=== PATIENT | male | born 1960 | race Caucasian/White ===

== ENCOUNTER 2016-10-25 23:55 | Emergency (ER) | payer OTHER ==
[2016-10-26 00:04] VITALS: RESP 18
[2016-10-26] MEDS ORDERED: DIPH,PERTUS(ACELL)TETVAC-LF 0.5 ML VIAL IM ONE (00:45)
--- NOTE | 2016-10-26 00:49 | ED ---
Wound/Laceration HPI - General Chief Complaint: Wound/Laceration Stated Complaint: hand injury Time Seen by Provider: 10/26/16 00:36 Source: patient, EMS, RN notes reviewed Mode of arrival: EMS Limitations: no limitations - History of Present Illness Initial Comments: 55-year-old male presents to the emergency department with a chief complaint of right arm laceration. Patient states he put his arm through a glass window and obvious lacerations to the right arm. Patient states that he is not to assess. Patient denies any pain or weakness. Patient denies any other injury. Patient states he was concerned due to his symptoms as well as to the depth of the cuts. Patient denies any recent fever, chills, shortness of breath, chest pain, back pain, abdominal pain, nausea vomiting, numbness or tingling, dysuria or hematuria, constipation or diarrhea, headaches or visual changes, or any other current symptoms. - Related Data Allergies Allergy/AdvReac Type Severity Reaction Status Date / Time No Known Allergies Allergy Verified 10/25/16 23:58 Review of Systems ROS Statement: Those systems with pertinent positive or pertinent negative responses have been documented in the HPI. ROS Other: All systems not noted in ROS Statement are negative. Past Medical History Past Medical History: No Reported History History of Any Multi-Drug Resistant Organisms: None Reported Additional Past Surgical History / Comment(s): umbilical hernia repair Past Psychological History: No Psychological Hx Reported Smoking Status: Current every day smoker Past Alcohol Use History: Occasional Past Drug Use History: None Reported General Exam - General Exam Comments Initial Comments: General: The patient is awake and alert, in no distress, and does not appear acutely ill. Neck: The neck is supple, there is no tenderness. Cardiovascular: There is a regular rate and rhythm. No murmur, rub or gallop is appreciated. Respiratory: Lungs are clear to auscultation, respirations are non-labored, breath sounds are equal. No wheezes, stridor, rales, or rhonchi. Musculoskeletal: Sensation intact with 2+ pulses throughout the right impression. Full range of motion of right wrist and right elbow. Patient has a small superficial laceration to palm of the right hand. Patient has a linear abrasion to the right wrist. Patient has a 8 cm laceration to the right forearm. 5 out of 5 muscle strength testing throughout. 2+ pulses. Initial evaluation does show concern for deep tissue injury Neurological: CN II-XII intact, There are no obvious motor or sensory deficits. Coordination appears grossly intact. Speech is normal. Skin: Skin is warm and dry and no rashes or lesions are noted. Psychiatric: Normal mood and affect. Limitations: no limitations Course Vital Signs 10/25/16 23:59 Temperature 100.3 F H Pulse Rate 119 H Respiratory 18 Rate Blood Pressure 131/68 O2 Sat by Pulse 93 L Oximetry Procedures - Procedures Initial comment: The skin was anesthetized with 1% lidocaine. The laceration was then cleansed with Betadine and irrigated with normal saline. The wound was inspected, and there was injury to the muscle layer no tendon injury noted. No foreign body was noted in the wound. A total of 3 subcutaneous sutures were placed using 4-0 Vicryl followed by 13 skin sutures utilizing 5-0 nylon to a 8 cm laceration of the right forearm Medical Decision Making - Medical Decision Making 55-year-old male presents to the emergency Department chief complaint of right forearm laceration. At this time patient underwent laceration repair x-ray was reviewed. At this time we did discuss that there is concern for muscle injury. We did close internally and externally. We did discuss that he needs to follow-up with orthopedic is given their information. We did discuss this could lead to loss of function if he does not follow-up in his eye examined appropriately. The patient stated that he understood he states that he will do this. Muscle strength testing is normal at this time. Patient will be discharged home. Return parameters and care was discussed. - Radiology Data Radiology results: report reviewed, image reviewed Disposition Clinical Impression: Abrasion of right hand, Forearm laceration with complication Disposition: HOME SELF-CARE Condition: Stable Instructions: Abrasion (ED), Laceration (ED), Care For Your Stitches (ED) Additional Instructions: Please use medication as discussed. Please follow up with family doctor if symptoms have not improved over the next two days. Please return to the emergency room if your symptoms increase or worsen or for any other concerns. Please return to the emergency room in 8-10 days to have sutures removed. Please leave wound covered for the first 24-48 hours and then leave open to air after that time. Please use clean soap and water to clean the suture area to prevent scabbing over the top of your sutures. Please watch for any signs of infection which may include but not limited to increased pain, swelling, redness , fever or chills. Please return to the emergency room if any signs of infection do occur. Please return to the emergency room for any other concerns or complications. Follow-up with or so as discussed. Referrals: Toney Bush MD [STAFF PHYSICIAN] - 1-2 days Time of Disposition: 01:41
--- NOTE | 2016-10-26 01:20 | XR ---
EXAM: XR Right Forearm, 2 Views XR Right Elbow, 3 Views CLINICAL HISTORY: Reason: Pain Proximal forearm laceration after arm went through window glass, no previous TECHNIQUE: Frontal and lateral views of the right forearm. Frontal, lateral, and oblique views of the right hand. COMPARISON: No relevant prior studies available. FINDINGS: Bones/joints: No acute fracture or dislocation. Age-indeterminate 2 mm density adjacent to the proximal surface of the lunate. Mild degenerative changes of the hand. Soft tissues: Roughly 4.2 cm soft tissue defect in the proximal volar soft tissues of the forearm. No radiopaque foreign body. IMPRESSION: 1. No acute fracture or dislocation. 2. Roughly 4.2 cm soft tissue defect in the proximal volar soft tissues of the forearm. 3. No radiopaque foreign body. 4. Age-indeterminate 2 mm density adjacent to the proximal surface of the lunate.
[2016-10-26] MEDS ORDERED: CEPHALEXIN 500MG STARTER PACK 4 CAP BTL PO STA (01:43)
[2016-10-26 02:26] VITALS: BP 145/89; PULSE 88; TEMP 99
== END 2016-10-26 02:24 | disposition home or self-care (01) ==
LOC: EC 23:55
DX: S51.811A Laceration without foreign body of right forearm, initial encounter (principal); F17.200 Nicotine dependence, unspecified, uncomplicated; Z23 Encounter for immunization; W25.XXXA Contact with sharp glass, initial encounter
CPT/HCPCS: 12034; 90471; 90715; 99284

== ENCOUNTER 2022-08-14 17:54 | Inpatient (IN) | payer OTHER ==
--- NOTE | 2022-08-14 18:59 | ED ---
Chest Pain HPI - General Chief Complaint: Chest Pain Stated Complaint: Chest Pain last night Time Seen by Provider: 08/14/22 18:58 Source: patient, RN notes reviewed, old records reviewed Mode of arrival: ambulatory Limitations: no limitations - History of Present Illness Initial Comments: This is a 61-year-old male presents today for evaluation patient has no significant medical history positive history of smoking attempting to quit. Patient has no travel history or sick contacts coming in for evaluation regarding chest pain significant headache. History. Patient was not feeling well throughout the day yesterday did take at home coronavirus test which was negative. Feels well today with family was concerned about his symptoms and wanted and presents to the emergency department for evaluation. There concern any despite his life he has not seen a family doctor Antivert patient come to the ER for evaluation of this chest pain MD Complaint: chest pain, other (No current chest pain) -: hour(s) Onset: during rest, during exertion Pain Location: substernal, left chest Pain Radiation: none Severity: moderate Severity scale (1-10): 7 Quality: tightness, aching, heaviness Consistency: constant, now resolved Improves With: nothing Worsens With: nothing Anginal Symptoms: diaphoresis Other Symptoms: palpitations Treatments Prior to Arrival: none - Related Data Home Medications Medication Instructions Recorded Confirmed No Known Home Medications 08/14/22 08/14/22 Allergies Allergy/AdvReac Type Severity Reaction Status Date / Time No Known Allergies Allergy Verified 08/14/22 19:33 Review of Systems ROS Statement: Those systems with pertinent positive or pertinent negative responses have been documented in the HPI. ROS Other: All systems not noted in ROS Statement are negative. EKG Findings - EKG Comments: EKG Findings:: EKG is sinus 84 MI 190 QRS 97 QTC 433 Past Medical History Past Medical History: No Reported History History of Any Multi-Drug Resistant Organisms: None Reported Past Surgical History: Hernia Repair Additional Past Surgical History / Comment(s): umbilical hernia repair Past Psychological History: No Psychological Hx Reported Smoking Status: Current every day smoker Past Alcohol Use History: Occasional Past Drug Use History: None Reported General Exam Limitations: no limitations General appearance: anxious Head exam: Present: atraumatic, normocephalic, normal inspection Eye exam: Present: normal appearance, PERRL, EOMI. Absent: scleral icterus, conjunctival injection, periorbital swelling ENT exam: Present: normal exam, mucous membranes moist Neck exam: Present: normal inspection. Absent: tenderness, meningismus, lymphadenopathy Respiratory exam: Present: normal lung sounds bilaterally. Absent: respiratory distress, wheezes, rales, rhonchi, stridor Cardiovascular Exam: Present: regular rate, normal rhythm, normal heart sounds. Absent: systolic murmur, diastolic murmur, rubs, gallop, clicks GI/Abdominal exam: Present: soft, normal bowel sounds. Absent: distended, tenderness, guarding, rebound, rigid Extremities exam: Present: normal inspection, full ROM, normal capillary refill. Absent: tenderness, pedal edema, joint swelling, calf tenderness Back exam: Present: normal inspection Neurological exam: Present: alert, oriented X3, CN II-XII intact Psychiatric exam: Present: normal affect, normal mood Skin exam: Present: warm, dry, intact, normal color. Absent: rash Course Vital Signs 08/14/22 08/14/22 08/14/22 18:06 19:17 20:14 Temperature 98.6 F Pulse Rate 94 85 90 Respiratory 16 16 18 Rate Blood Pressure 133/86 144/97 135/89 O2 Sat by Pulse 93 L 96 Oximetry 08/14/22 21:25 Temperature Pulse Rate 76 Respiratory 18 Rate Blood Pressure 135/83 O2 Sat by Pulse 96 Oximetry - Reevaluation(s) Reevaluation #1: 08/14/22 22:21 Medical records reviewed Reevaluation #2: 08/14/22 22:21 patient informed of results and questions have been answered Reevaluation #3: 08/14/22 22:21 Patient continues to be without chest pain here in the ER Reevaluation #4: 08/14/22 22:22 Was pt. sent in by a medical professional or institution? @ -no Did you speak to anyone other than the patient for history? @ -no Did you review nursing and triage notes? @ -agree Were old charts reviewed? @ -no Differential Diagnosis? @ -prior EKG interpreted by me (3pts min.)? @ -yes X-rays interpreted by me (1pt min.)? @ -yes CT interpreted by me (1pt min.)? @ -no U/S interpreted by me (1pt. min.)? @ -no What testing was considered but not performed? (CT, X-rays, U/S, labs)? Why? @ -no What meds were considered but not given? Why? @ -no Did you discuss the management of the patient with other professionals? @ -no Did you reconcile home meds? @ -yes Was smoking cessation discussed for >3mins.? @ -yes Was critical care preformed (if so, how long)? @ -yes Were there social determinants of health that impacted care today? How? (Homelessness, low income, unemployed, alcoholism, drug addiction, transportation, low edu. Level, literacy, decrease access to med. care, intermediate, rehab)? @ -no Was there de-escalation of care discussed even if they declined? (Discuss DNR or withdrawal of care, Hospice)? @ -no What co-morbidities impacted this encounter? (DM, HTN, Smoking, COPD, CAD, Cancer, CVA, Hep., AIDS, mental health diagnosis, sleep apnea, morbid obesity)? @ -no Was patient admitted / discharged? @ -admit Undiagnosed new problem with uncertain prognosis? @ -no Drug Therapy requiring intensive monitoring for toxicity (Heparin, Nitro, Insulin, Cardizem)? @ -no Were any procedures done? @ -no Diagnosis/symptom? @ -NSTEMI,ACS Acute, or Chronic, or Acute on Chronic? @ -acute Uncomplicated (without systemic symptoms) or Complicated (systemic symptoms)? @ -no Side effects of treatment? @ -no Exacerbation, Progression, or Severe Exacerbation] @ - Poses a threat to life or bodily function? @ -yes 08/14/22 22:22 Reevaluation #5: 08/14/22 22:22 Differential Chest Pain: Stable Angina, Unstable Angina, STEMI, NSTEMI Aortic Dissection, Pneumothorax, Musculoskeletal, Esophageal Spasm GERD, Cholecystitis, Pancreatitis, Zoster, this is not meant to be an all-inclusive list. - Consultations Consultation #1: Spoke with Dr. Roman, cardiology where patient's elevated troponin Consultation #2: spoke with rakesh who agrees to admit this patient Chest Pain MDM - MDM 61 male to the emergency room for chest pain that he experienced yesterday. Patient has no significant chest pain here in the emergency department. Patient also had some weakness and sweating yesterday. He had a fever. Covert test was negative yesterday has have acute non-ST elevated [place] here in the ER stage IV 5 EKG negative 2 patient be admitted on heparin for cardiology to see and evaluate Critical Care Time Critical Care Time: Yes Total Critical Care Time: 31 Disposition Clinical Impression: Acute non-ST elevation myocardial infarction (NSTEMI), Chest pain, ACS (acute coronary syndrome) Disposition: ADMITTED IP TO THIS HOSP Condition: Serious Is patient prescribed a controlled substance at d/c from ED?: No Referrals: None,Stated [Primary Care Provider] - 1-2 days Time of Disposition: 20:10
[2022-08-14 19:32] LABS: Basophils # (A) 0.1 k/uL (0-0.2); Basophils % (A) 0 %; Eosinophils # (A) 0.1 k/uL (0-0.7); Eosinophils % (A) 1 %; HGB 16.2 gm/dL (13.0-17.5); Lymphocytes # (A) 2.3 k/uL (1.0-4.8); Lymphocytes % (A) 19 %; MCH 30.3 pg (25.0-35.0); MCHC 33.8 g/dL (31.0-37.0); MCV 89.7 fL (80.0-100.0); Mean Platelet Volume 8.2; Monocytes # (A) 0.8 k/uL (0-1.0); Monocytes % (A) 6 %; Neutrophils % (A) 72 %; Platelet Count 199 k/uL (150-450); RBC 5.35 m/uL (4.30-5.90); RDW 12.9 % (11.5-15.5); WBC 12.4 k/uL (3.8-10.6)
[2022-08-14 19:44] LABS: ALT 36 U/L (4-49); AST 87 U/L (17-59); African American GFR (CKD) >90 (>60 ml/min/1.73 sqM); Albumin 4.7 g/dL (3.5-5.0); Alkaline Phosphatase 92 U/L (38-126); Anion Gap 11 mmol/L; Blood Urea Nitrogen 13 mg/dL (9-20); Calcium 9.9 mg/dL (8.4-10.2); Carbon Dioxide 23 mmol/L (22-30); Chloride 105 mmol/L (98-107); Glucose 131 mg/dL (74-99); Lipase 81 U/L (23-300); Magnesium 2.1 mg/dL (1.6-2.3); Non-African American GFR(CKD) >90 (>60 ml/min/1.73 sqM); Partial Thromboplastin Time 24.5 sec (22.0-30.0); Potassium 4.3 mmol/L (3.5-5.1); Prothrombin Time 10.4 sec (9.0-12.0); Sodium 139 mmol/L (137-145); Total Bilirubin 0.7 mg/dL (0.2-1.3); Total Protein 8.2 g/dL (6.3-8.2)
--- NOTE | 2022-08-14 19:46 | XR ---
EXAMINATION TYPE: XR chest 1V portable DATE OF EXAM: 08/14/2022 7:22 PM COMPARISON: None TECHNIQUE: XR chest 1V portable Frontal view of the chest. CLINICAL INDICATION:Male, 61 years old with history of chest pain; FINDINGS: Lungs/Pleura: There is no evidence of pleural effusion, focal consolidation, or pneumothorax. Pulmonary vascularity: Unremarkable. Heart/mediastinum: Cardiomediastinal silhouette is unremarkable. Musculoskeletal: No acute osseous pathology. IMPRESSION: No acute cardiopulmonary disease/process.
--- NOTE | 2022-08-14 20:46 | CT ---
EXAMINATION TYPE: CT angio chest CT DLP: 420.9 mGycm, Automated exposure control for dose reduction was used. DATE OF EXAM: 08/14/2022 8:22 PM COMPARISON: Chest radiograph from same day. CLINICAL INDICATION:Male, 61 years old with history of pain; pain, sob. TECHNIQUE/CONTRAST: CTA scan of the thorax is performed with IV Contrast, patient injected with 100ml of Isovue 370, pulm onary embolism protocol. MIP images are created and reviewed these are created on a separate worksta tion.. FINDINGS: Pulmonary Artery: There is no evidence for a filling defect within the pulmonary vasculature to sugge st acute pulmonary embolism. The pulmonary artery is of normal size. Lungs/Pleura: No evidence of focal consolidation, pleural effusion or pneumothorax. Left upper lobe 3 mm pulmonary nodule. Series 606 image 65. Airway: Large airways are patent. Heart: Heart is within normal limits for size. Vasculature: No evidence of aortic aneurysm. Mediastinum: No gross evidence of adenopathy. Musculoskeletal: No acute osseous abnormalities Soft Tissues: Unremarkable. Lower neck: No significant findings. Upper Abdomen: No significant findings. IMPRESSION: 1. No evidence of pulmonary embolism. 2. 3 mm left upper lobe pulmonary nodule consider follow-up in one year to ensure stability.
[2022-08-14] MEDS ORDERED: HEPARIN SODIUM 1,000 UN/ML (10ML VL) IV ONE (22:09)
[2022-08-14] MEDS ORDERED: MORPHINE SULFATE 4 MG/ML SYRINGE IV PRN (22:09)
[2022-08-14] MEDS ORDERED: NITROGLYCERIN SL TABS 0.4 MG TAB SUBLINGUAL PRN (22:09)
[2022-08-14] MEDS ORDERED: ASPIRIN 81 MG PO STA (22:09)
[2022-08-14] MEDS: HEPARIN SOD,PORK IN 0.45% NACL 25,000 UNIT in 0.45% NACL 1 250ML.BAG IV SCH (22:58)
[2022-08-14] MEDS: SODIUM CHLORIDE 0.9% 1,000 ML IV SCH (23:00)
--- NOTE | 2022-08-15 04:28 | P.HPIM ---
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 however due to recurrent episodes of pain and breathing difficulties , denies nausea and vomiting, denies any fever chills, denies any recent respiratory illnes. he decided to come in to test for covid . he is feeling better now, laying in bed comfortably admits to smoking , denies drugs and alcohol Review of Systems Pertinent positives as noted in HPI. All other systems were reviewed and are negative Past Medical History Past Medical History: No Reported History History of Any Multi-Drug Resistant Organisms: None Reported Past Surgical History: Hernia Repair Additional Past Surgical History / Comment(s): umbilical hernia repair Past Psychological History: No Psychological Hx Reported Smoking Status: Current every day smoker Past Alcohol Use History: Occasional Past Drug Use History: None Reported Medications and Allergies Home Medications Medication Instructions Recorded Confirmed Type No Known Home Medications 08/14/22 08/14/22 History Allergies Allergy/AdvReac Type Severity Reaction Status Date / Time No Known Allergies Allergy Verified 08/14/22 19:33 Physical Exam Vitals: Vital Signs Temp Pulse Resp BP Pulse Ox 08/14/22 23:00 82 16 140/93 93 L 08/14/22 21:25 76 18 135/83 96 08/14/22 20:14 90 18 135/89 08/14/22 19:17 85 16 144/97 96 08/14/22 18:06 98.6 F 94 16 133/86 93 L Intake and Output 08/14/22 08/14/22 08/15/22 14:59 22:59 06:59 Other: Weight 90.718 kg Constitutional: No acute distress, conversant, pleasant Eyes: Anicteric sclerae, moist conjunctiva, Pupils equal round reactive to light ENMT: NC/AT Oropharynx clear, no erythema, or exudates Neck: Supple, no masses, or JVD No carotid bruits No thyromegaly Lungs: Clear to auscultation Clear to percussion Normal respiratory effort, no accessory muscle use Cardiovascular: Heart regular in rate and rhythm, No murmurs, gallops, or rubs No peripheral edema Abdominal: Soft Nontender, no guarding, rebound or rigidity Abdomen moving with respiration Normoactive bowel sounds No hepatomegaly, No splenomegaly No palpable mass No abdominal wall hernia noted Skin: Normal temperature, tone, texture, turgor No induration No subcutaneous nodules No rash, lesions No ulcers Extremities: No digital cyanosis No clubbing Pedal pulses intact and symmetrical Radial pulses intact and symmetrical No calf tenderness Psychiatric: Alert and oriented to person, place and time Appropriate affect fair judgement Neuro Muscles Strength 5/5 in all 4 extremities Sensation to light touch grossly present throughout Cranial nerves II-XII grossly intact Lymphatics: no palpable cervical or supraclavicular lymph nodes Results CBC & Chem 7: 08/14/22 19:11 08/14/22 19:11 Labs: Abnormal Lab Results - Last 24 Hours (Table) 08/14/22 08/14/22 08/14/22 Range/Units 19:11 19:11 19:11 WBC 12.4 H (3.8-10.6) k/uL Neutrophils # 9.0 H (1.3-7.7) k/uL D-Dimer 0.62 H (<0.60) mg/L FEU Glucose 131 H (74-99) mg/dL AST 87 H (17-59) U/L CK-MB (CK-2) (0.0-2.4) ng/mL Troponin I (0.000-0.034) ng/mL 08/14/22 08/14/22 Range/Units 19:11 20:14 WBC (3.8-10.6) k/uL Neutrophils # (1.3-7.7) k/uL D-Dimer (<0.60) mg/L FEU Glucose (74-99) mg/dL AST (17-59) U/L CK-MB (CK-2) 39.9 H (0.0-2.4) ng/mL Troponin I 5.130 H* (0.000-0.034) ng/mL Assessment and Plan Assessment: 61 year old male with no significant past medical history , presented due to chest pain and not feeling well, I discussed the case with ED doc, and I accepted the admission for NSTEMI to rule out NSTEMI NSTEMI color television console monitor monitor vital signs pain control with nitro PRN morphine PRN if needed for pain ASA, statin metoprolol cardiology consult check echocardiogram elevated trops in the 5-6 range EKG no acute ST changes incidental finding of left upper lung small nodule of 3 cm , radiology recommending follow up in 1 year . blood work reviewed, Hgb 16.2, WBC 12.4 slightly elevaetd D dimer CTA of lung, no acute PE full code DVT PPX on hepairn gtt per protocol for ACCS
[2022-08-15 05:43] LABS: Mean Platelet Volume 8.1; Platelet Count 198 k/uL (150-450)
[2022-08-15] MEDS ORDERED: HEPARIN SODIUM 1,000 UN/ML (10ML VL) IV PRN (06:36)
[2022-08-15] MEDS: METOPROLOL TARTRATE 25 MG TAB PO SCH ×2 (08:37→21:20)
[2022-08-15] MEDS: ATORVASTATIN 80 MG TAB PO SCH (08:37)
[2022-08-15] MEDS ORDERED: NITROGLYCERIN SL TABS 0.4 MG TAB SUBLINGUAL PRN (08:54)
[2022-08-15] MEDS ORDERED: ALPRAZolam 0.5 MG TAB PO PRN (08:54)
[2022-08-15] MEDS ORDERED: ALPRAZolam 0.25 MG TAB PO PRN (08:54)
[2022-08-15] MEDS ORDERED: ATORVASTATIN 80 MG TAB PO STA (08:54)
[2022-08-15] MEDS ORDERED: ASPIRIN 325 MG TAB PO STA (08:54)
[2022-08-15] MEDS ORDERED: ASPIRIN 81 MG PO SCH (09:00)
[2022-08-15] MEDS ORDERED: ASPIRIN 325 MG TAB PO SCH (09:00)
[2022-08-15] MEDS ORDERED: VERAPAMIL 2.5 MG/ML 2 ML AMP ONE (11:55)
[2022-08-15] MEDS ORDERED: IV FLUID CONTINUATION 850 ML IV ONE (12:02)
[2022-08-15] MEDS ORDERED: fentaNYL (PF) 50 MCG/ML 2 ML AMP ONE (12:04)
[2022-08-15] MEDS ORDERED: HEPARIN SODIUM 1,000 UN/ML (10ML VL) ONE (12:04)
[2022-08-15] MEDS ORDERED: fentaNYL (PF) 50 MCG/1 ML VIAL IVP ONE (12:07)
[2022-08-15] MEDS ORDERED: MIDAZOLAM 2 MG/2 ML VIAL IVP ONE (12:07)
[2022-08-15] MEDS ORDERED: LIDOCAINE 1% INJ 10MG/ML (5 ML VIAL-PF) SQ ONE (12:09)
[2022-08-15] MEDS ORDERED: VERAPAMIL SYRINGE (5 MG/10 ML) INTRAARTER ONE (12:13)
[2022-08-15] MEDS ORDERED: HEPARIN SODIUM 1,000 UN/ML (10ML VL) IV ONE (12:15)
[2022-08-15] MEDS ORDERED: IOPAMIDOL-370 200ML BTL INJ ONE (12:27)
--- NOTE | 2022-08-15 12:34 | CA ---
Transthoracic Echo Report Name: Minh Wakefield Age: 61 Gender: M : 1960 Exam Date: 08/15/2022 10:23 Exam Location: [facility] Ht (in): 63 Wt (lb): 200 Ordering Physician: Peter Motta DO Attending/Referring Phys: [id number], Kalia Rn Access Nany Cramer, MIGUEL ÁNGEL Procedure CPT: Indications: elevTrop Cardiac Hx: Technical Quality: Good Contrast 1: Total Dose (mL): Contrast 2: Total Dose (mL): MEASUREMENTS (Male / Female) Normal Values 2D ECHO LV Diastolic Diameter PLAX 4.4 cm 4.2 - 5.9 / 3.9 - 5.3 cm LV Systolic Diameter PLAX 3.2 cm IVS Diastolic Thickness 1.2 cm 0.6 - 1.0 / 0.6 - 0.9 cm LVPW Diastolic Thickness 1.2 cm 0.6 - 1.0 / 0.6 - 0.9 cm LV Relative Wall Thickness 0.5 RV Internal Dim ED PLAX 3.2 cm LA Systolic Diameter LX 3.7 cm 3.0 - 4.0 / 2.7 - 3.8 cm LV Diastolic Volume MOD 4C 102.2 cm??? LV Systolic Volume MOD 4C 59.8 cm??? LV Ejection Fraction MOD 4C 41.5 % LV Diastolic Length 4C 8.4 cm LV Systolic Length 4C 6.8 cm LV Diastolic Volume MOD 2C 95.1 cm??? LV Systolic Volume MOD 2C 59.2 cm??? LV Ejection Fraction MOD 2C 37.7 % LV Diastolic Length 2C 8.1 cm LV Systolic Length 2C 7.0 cm LA Volume 50.9 cm??? 18 - 58 / 22 - 52 cm??? M-MODE Aortic Root Diameter MM 3.5 cm MV E Point Septal Separation 1.7 cm AV Cusp Separation MM 2.2 cm DOPPLER AV Peak Velocity 126.7 cm/s AV Peak Gradient 6.4 mmHg MV Area PHT 1.4 cm??? Mitral E Point Velocity 39.4 cm/s Mitral A Point Velocity 95.6 cm/s Mitral E to A Ratio 0.4 MV Deceleration Time 553.3 ms MV E' Velocity 6.5 cm/s Mitral E to MV E' Ratio 6.0 FINDINGS Left Ventricle Left ventricular ejection fraction is estimated at 50 %. Mildly increased septal wall thickness. Left ventricular cavity size normal. No obvious regional wall motion abnormalities. Right Ventricle Normal right ventricular size. Unable to estimate the right ventricular systolic pressure. Right Atrium Normal right atrial size. Left Atrium Normal left atrial size. Mitral Valve Structurally normal mitral valve. Trace mitral regurgitation. Aortic Valve Trileaflet aortic valve. No aortic valve stenosis or regurgitation. Tricuspid Valve Structurally normal tricuspid valve. No tricuspid stenosis, regurgitation or prolapse. Pulmonic Valve Structurally normal pulmonic valve. No pulmonic regurgitation. Pericardium Normal pericardium. No pericardial effusion. Aorta Normal size aortic root and proximal ascending aorta. CONCLUSIONS Left ventricular ejection fraction 50% Mild increased left ventricular wall thickness Trace mitral regurgitation No pericardial effusion Previewed by: Dr. Obi Anderson DO (Electronically Signed) Final Date: 15 Aug 2022 12:33
[2022-08-15] MEDS ORDERED: RX INFO: IV CONTRAST WAS GIVEN 1 EACH MISC MISCELLANE PRN (12:50)
--- NOTE | 2022-08-15 13:04 | P.CRDCN ---
History of Present Illness Consult date: 08/15/22 Consult reason: non-Q-wave MT History of present illness: History of present illness: This is a 61-year-old male but does not follow with a physician for number of years, no known medical history. Patient states that he was at work on Friday developed chest pain that was a quick sharp pain along with difficulty in breathing. He sat down and it went away and lasted an hour. He denies having any lightheadedness dizziness, no palpitations. Patient went home and relaxed for the rest the day and slept. He denies having any cough or upper respiratory infection. He states he had similar symptoms when he had Covid 19 in the past and yesterday he was having chills. His daughter took to test on him that today and those were negative. He started on DayQuil and aspirin and was feeling better. On Friday he continued to nap but was feeling better and had no symptoms of chest pain. His kids wanted him to be checked and he came into [facility] for evaluation. Patient is an active smoker since he was a teenager currently down to 4-5 cigarettes per day. He states he has a history of alcohol abuse and quit drinking 17 years ago. No history of diabetes that he is aware of. EKG sinus rhythm with no acute ST changes Chest x-ray: No acute cardiopulmonary disease CT angiogram of the chest revealed no evidence of pulmonary embolism. 3 mm left upper lobe pulmonary nodule consider follow-up in a year. WBC 12.4, hemoglobin 16.2, platelet count 199. INR 1. D-dimer 0.62. Electrolytes and renal function normal. Troponins 5.13, 6.03, 5.83. ProBNP 1220. TSH 3.120. Rotavirus and strep negative. Echocardiogram 08/15/2022: EF 50%, mild increased left ventricular wall thickness, trace mitral regurgitation, no pericardial effusion. Home cardiac medications: None Review Of Systems: At the time of my evaluation: Constitutional: No fever, no chills. No weakness, fatigue or lethargy. EENT: No headache. No dizziness. Lungs: No shortness of breath, cough, no sputum production. No wheezing. Cardiovascular: No chest pain, no lower extremity edema. No palpitations. No paroxysmal nocturnal dyspnea. No orthopnea. No lightheadedness or dizziness. No syncopal episodes. Abdominal: No abdominal pain. No nausea, vomiting. No diarrhea. No constipation. No bloody or tarry stools. Genitourinary: No dysuria.. No urinary retention. Musculoskeletal: No myalgias. No muscle weakness, no frequent falls. No back pain. No neck pain. Integumentary: No wounds. No rash. No unusual bruising. Neurologic: No aphasia. No facial droop. No change in mentation. No head injury. No headache. Physical examination: Gen: This is a 61-year-old male. He is resting in the ears structure and appears to be comfortable, no acute respiratory distress noted. VS: reviewed HEENT: Head is atraumatic, normocephalic. Pupils equal, round. Sclerae is anicteric. NECK: Supple. No JVD. . LUNGS: Clear to auscultation. No wheezes or rhonchi. No intercostal retractions. HEART: Regular rate and rhythm. No murmur. ABDOMEN: Soft No tenderness. EXTREMITIES: No pedal edema. No calf tenderness. NEUROLOGICAL: Patient is awake, alert and oriented x3. Assessment: Acute non-ST elevated myocardial infarction Tobacco use and dependence History of alcohol abuse History of Covid 19 Leukocytosis of unclear etiology Plan: Discussed option of cardiac catheterization with the patient and he is agreeable to move forward, scheduled for today with Dr. Phillips Patient started on aspirin 81 mg daily, atorvastatin 80 mg daily, Imdur 30 mg daily, lisinopril 2.5 mg daily, Lopressor 25 mg twice daily Further recommendations to follow based upon clinical course Thank you kindly for this consultation. Nurse practitioner note has been reviewed, I agree with documented findings and plan of care. Patient was seen and examined. Past Medical History Past Medical History: No Reported History History of Any Multi-Drug Resistant Organisms: None Reported Past Surgical History: Hernia Repair Additional Past Surgical History / Comment(s): umbilical hernia repair Past Psychological History: No Psychological Hx Reported Smoking Status: Current every day smoker Past Alcohol Use History: Occasional Past Drug Use History: None Reported Medications and Allergies Home Medications Medication Instructions Recorded Confirmed Type No Known Home Medications 08/14/22 08/14/22 History Allergies Allergy/AdvReac Type Severity Reaction Status Date / Time No Known Allergies Allergy Verified 08/14/22 19:33 Physical Exam Vitals: Vital Signs Temp Pulse Resp BP Pulse Ox 08/15/22 08:33 98.3 F 85 18 126/80 93 L 08/15/22 05:06 75 17 136/79 98 08/15/22 01:08 71 19 149/88 98 08/14/22 23:00 82 16 140/93 93 L 08/14/22 21:25 76 18 135/83 96 08/14/22 20:14 90 18 135/89 08/14/22 19:17 85 16 144/97 96 08/14/22 18:06 98.6 F 94 16 133/86 93 L Intake and Output 08/14/22 08/15/22 08/15/22 22:59 06:59 14:59 Intake Total 77.81 Balance 77.81 Intake: Intake, IV Titration 77.81 Amount Heparin Sod,Pork in 0.45% 77.81 NaCl 25,000 unit In 0.45 % NaCl 1 250ml.bag @ 11. 02 UNITS/KG/HR 9.997 mls/ hr IV .Q24H [facility] Rx#: [id number] Other: Weight 90.718 kg Results 08/15/22 05:26 08/14/22 19:11 Cardiac Enzymes 08/14/22 08/14/22 08/14/22 Range/Units 19:11 19:11 20:14 AST 87 H (17-59) U/L CK-MB (CK-2) 39.9 H (0.0-2.4) ng/mL Troponin I 5.130 H* (0.000-0.034) ng/mL 08/14/22 08/15/22 Range/Units 23:07 01:25 AST (17-59) U/L CK-MB (CK-2) (0.0-2.4) ng/mL Troponin I 6.030 H* 5.830 H* (0.000-0.034) ng/mL Coagulation 08/14/22 08/15/22 Range/Units 19:11 05:26 PT 10.4 (9.0-12.0) sec APTT 24.5 32.1 H (22.0-30.0) sec CBC 08/14/22 08/15/22 Range/Units 19:11 05:26 WBC 12.4 H (3.8-10.6) k/uL RBC 5.35 (4.30-5.90) m/uL Hgb 16.2 (13.0-17.5) gm/dL Hct 48.0 (39.0-53.0) % Plt Count 199 198 (150-450) k/uL Comprehensive Metabolic Panel 08/14/22 Range/Units 19:11 Sodium 139 (137-145) mmol/L Potassium 4.3 (3.5-5.1) mmol/L Chloride 105 (98-107) mmol/L Carbon Dioxide 23 (22-30) mmol/L BUN 13 (9-20) mg/dL Creatinine 0.91 (0.66-1.25) mg/dL Glucose 131 H (74-99) mg/dL Calcium 9.9 (8.4-10.2) mg/dL AST 87 H (17-59) U/L ALT 36 (4-49) U/L Alkaline Phosphatase 92 (38-126) U/L Total Protein 8.2 (6.3-8.2) g/dL Albumin 4.7 (3.5-5.0) g/dL Current Medications Generic Name Dose Route Start Last Admin Trade Name Freq PRN Reason Stop Dose Admin Aspirin 325 mg 08/15/22 09:00 08/15/22 08:37 Aspirin 325 Mg Tab PO 325 mg DAILY ASA Administration Atorvastatin Calcium 80 mg 08/15/22 09:00 08/15/22 08:37 Atorvastatin 80 Mg Tab PO 80 mg DAILY ASA Administration Heparin Sodium (Porcine) 0 unit 08/15/22 06:36 08/15/22 06:43 Heparin Sodium 1,000 Un/Ml (10ml Vl) IV 4,000 unit Q6HR PRN Administration Low PTT Protocol Sodium Chloride 1,000 mls @ 20 mls/hr 08/14/22 22:15 08/14/22 23:00 Saline 0.9% IV 20 mls/hr .Q24H ASA Administration Heparin Sodium/Sodium Chloride 250 mls @ 9.997 mls/hr 08/14/22 22:15 08/15/22 06:45 25,000 unit/ Sodium Chloride IV 14.02 units/kg/hr .Q24H ASA 12.719 mls/hr Titration Protocol 11.02 UNITS/KG/HR Metoprolol Tartrate 25 mg 08/15/22 09:00 08/15/22 08:37 Metoprolol Tartrate 25 Mg Tab PO 25 mg BID ASA Administration Morphine Sulfate 4 mg 08/14/22 22:09 Morphine Sulfate 4 Mg/Ml Syringe IV Q4HR PRN Chest Pain Nitroglycerin 0.4 mg 08/14/22 22:09 Nitroglycerin Sl Tabs 0.4 Mg Tab SUBLINGUAL Q5M PRN Chest Pain Intake and Output 08/14/22 08/15/22 08/15/22 22:59 06:59 14:59 Intake Total 77.81 Balance 77.81 Intake: Intake, IV Titration 77.81 Amount Heparin Sod,Pork in 0.45% 77.81 NaCl 25,000 unit In 0.45 % NaCl 1 250ml.bag @ 11. 02 UNITS/KG/HR 9.997 mls/ hr IV .Q24H [facility] Rx#: [id number] Other: Weight 90.718 kg 08/15/22 05:26 08/14/22 19:11
--- NOTE | 2022-08-15 13:36 | CC ---
CARDIAC CATHETERIZATION REPORT INDICATIONS: Acute ier-CX-mprzbed elevation [place]. PROCEDURE NOTE: After obtaining informed consent, left heart catheterization and coronary angiogram were performed via the right radial artery using standard Ruperto catheters. The patient tolerated the procedure well without any obvious immediate complications. The patient received moderate conscious sedation, total sedation time was 21 minutes. Right radial artery access was obtained using Seldinger technique. A 6-Yakut sheath was placed. Catheters and wires were floated into the ascending aorta under fluoroscopic guidance. The patient received verapamil and heparin per protocol. A TR band was used for hemostasis. FINDINGS: 1. Hemodynamics: Left ventricular end-diastolic pressure is 15 mm, there is no gradient across the aortic valve. 2. Left ventriculogram: Left ventriculogram is not performed. 3. Angiographic Data: a.Right coronary artery: Right coronary artery is a large dominant vessel, shows diffuse moderate disease and focal area of narrowing in the proximal portion of 40% to 50%. There are collaterals going to the LAD from the distal RCA. b.Left main coronary artery appears calcified, shows mild nonobstructive disease, divides into LAD and circumflex coronary artery. LAD shows [id number] diffuse calcific atherosclerotic plaque and a focal area of 70% stenosis very distally. Circumflex coronary artery is a large nondominant vessel and shows a 70% ostial stenosis. c.Diffuse 3-vessel coronary artery disease as described above with a focal area of narrowing involving the ostial portion of the circumflex coronary artery. PLAN: Angiographic data was reviewed by Dr. Anderson, the on-call size maker, who felt that the patient is better off with optimal medical therapy and consider percutaneous revascularization only if he has symptoms in spite of optimal therapy. The patient will be treated with aspirin, nitrates, beta blockers, TRISTIN inhibitors, and statins. MMODL / IJN: [id number] /
--- NOTE | 2022-08-15 15:34 | P.PN ---
Subjective Progress Note Date: 08/15/22 Hospital course: Patient is a very pleasant 61-year-old male with a past medical history of nicotine dependence. He reports that on Friday he developed some chest pain/pressure to his left anterior chest wall at work. Patient reports since this time he has developed exertional shortness of breath along with extreme fatigue and was directed by his children to come to the hospital for evaluation on 08/14/22. Upon arrival to the emergency department, patient underwent full evaluation. Vital signs upon arrival stable with blood pressure 133/86, heart rate 94, respiratory rate 16, and SpO2 of 93% on room air with temperature 98.6F. EKG was completed showing normal sinus rhythm with a right bundle branch block at 84 bpm with T-wave inversion in inferior leads V3 and aVF upon personal review and interpretation. Chest x-ray completed and reviewed negative for acute cardiopulmonary process. CTA chest completed negative for pulmonary emboli revealing a 3 mm left upper lobe pulmonary nodule, recommend repeat imaging in 1 year to ensure stability. Labs completed and reviewed. CBC showing mild cytosis with WBC count of 12.4, d-dimer was elevated at 0.62 (as stated above CTA negative for PE). BMP unremarkable, liver profile showing slightly elevated AST of 87 and elevated CK-MB of 39.9. Troponin also elevated with initial troponin of 5.130. Patient was given aspirin and atorvastatin and started on heparin infusion. Patient was admitted under our services to cardiac stepdown unit with telemetry. Troponins were trended overnight and resulting at 5.130, 6.030, and 5.830. Cardiology consulted and planning to take patient for cardiac catheterization later today. Physical exam: Patient seen and fully evaluated at bedside. Patient awaiting to go down for cardiac catheterization. Patient's children at bedside. Patient currently denies having any chest pain, palpitations, shortness of breath, or any other complaints at this time. Vital signs reviewed and stable. General: Nontoxic, no distress and appears stated age. Derm: Skin warm and dry, normal coloration for ethnicity. Head: Atraumatic, normocephalic and symmetric. Eyes: EOMs intact, no lid lag, and anicteric sclera Mouth: no lip lesions, mucus membranes moist Cardiovascular: regular rate and rhythm with normal S1S2, no murmur, positive posterior tibial pulses bilaterally, and cap refill < 2 seconds. Lungs: Respirations even, regular, and unlabored on room air. Lungs CTA bilaterally, no rhonchi, no rales, no wheezing, and no accessory muscle usage. Abdominal: soft, nontender to palpation, no guarding, no appreciable organomegaly Ext: ROM intact. No gross muscle atrophy, no edema, no contractures Neuro: Speech clear, face symmetrical and CN II-XII grossly intact with no noted focal neuro deficits Psych: Alert and oriented to person, place, time, and situation. Appropriate and pleasant affect. Assessment and Plan of Care: NSTEMI -Vital signs upon arrival stable with blood pressure 133/86, heart rate 94, respiratory rate 16, and SpO2 of 93% on room air with temperature 98.6F. -EKG was completed showing normal sinus rhythm with a right bundle branch block at 84 bpm with T-wave inversion in inferior leads V3 and aVF upon personal review and interpretation. -Chest x-ray completed and reviewed negative for acute cardiopulmonary process. -CTA chest completed negative for pulmonary emboli revealing a 3 mm left upper lobe pulmonary nodule, recommend repeat imaging in 1 year to ensure stability. -Labs completed and reviewed. CBC showing mild cytosis with WBC count of 12.4, d-dimer was elevated at 0.62 (as stated above CTA negative for PE). BMP unremarkable, liver profile showing slightly elevated AST of 87 and elevated CK- MB of 39.9. Troponin also elevated with initial troponin of 5.130. -Patient was given aspirin and atorvastatin and started on heparin infusion and admitted under our services to cardiac stepdown unit with telemetry. Troponins were trended overnight and resulting at 5.130, 6.030, and 5.830. -Cardiology consulted and planning to take patient for cardiac catheterization later today. Type 2 diabetes mellitus, new diagnosis with hemoglobin A1c of 7.1% -Upon discharge, plans to start patient out on metformin 500 mg twice a day Nicotine dependence -Recommend smoking cessation. CODE STATUS: Full code DVT prophylaxis: Heparin infusion Discussed with: Patient, cardiology and RN Anticipated discharge date: Clinical course to determine Anticipated discharge place: Home Patient was seen independently by Nurse Pracitioner. This document was prepared using [employer] dictation software. Please allow for errors in senior software engineer, while rare they do occur. Jaquan Bryant NP rendered care for this patient independently, reviewed the findings and plan as documented in the note above. I did not physically speak with or examine the patient on this date. Objective - Vital Signs Vital signs: Vital Signs Temp 98.3 F 08/15/22 08:33 Pulse 85 08/15/22 08:33 Resp 18 08/15/22 08:33 BP 126/80 08/15/22 08:33 Pulse Ox 93 L 08/15/22 08:33 FiO2 Intake & Output 08/14/22 08/15/22 08/15/22 18:59 06:59 18:59 Intake Total 77.81 Balance 77.81 Weight 90.718 kg Intake: Intake, IV Titration 77.81 Amount Heparin Sod,Pork in 0.45% 77.81 NaCl 25,000 unit In 0.45 % NaCl 1 250ml.bag @ 11. 02 UNITS/KG/HR 9.997 mls/ hr IV .Q24H [facility] Rx#: [id number] - Labs CBC & Chem 7: 08/15/22 05:26 08/14/22 19:11 Labs: Abnormal Lab Results - Last 24 Hours (Table) 08/14/22 08/14/22 08/14/22 Range/Units 19:11 19:11 19:11 WBC 12.4 H (3.8-10.6) k/uL Neutrophils # 9.0 H (1.3-7.7) k/uL APTT (22.0-30.0) sec D-Dimer 0.62 H (<0.60) mg/L FEU Glucose 131 H (74-99) mg/dL AST 87 H (17-59) U/L CK-MB (CK-2) (0.0-2.4) ng/mL Troponin I (0.000-0.034) ng/mL 08/14/22 08/14/22 08/14/22 Range/Units 19:11 20:14 23:07 WBC (3.8-10.6) k/uL Neutrophils # (1.3-7.7) k/uL APTT (22.0-30.0) sec D-Dimer (<0.60) mg/L FEU Glucose (74-99) mg/dL AST (17-59) U/L CK-MB (CK-2) 39.9 H (0.0-2.4) ng/mL Troponin I 5.130 H* 6.030 H* (0.000-0.034) ng/mL 08/15/22 08/15/22 Range/Units 01:25 05:26 WBC (3.8-10.6) k/uL Neutrophils # (1.3-7.7) k/uL APTT 32.1 H (22.0-30.0) sec D-Dimer (<0.60) mg/L FEU Glucose (74-99) mg/dL AST (17-59) U/L CK-MB (CK-2) (0.0-2.4) ng/mL Troponin I 5.830 H* (0.000-0.034) ng/mL
[2022-08-15] MEDS: ISOSORBIDE MONONITRATE ER 30 MG TAB.ER.24H PO SCH (15:40)
[2022-08-15 16:18] LABS: Chol/HDL Ratio 5.11 Ratio
[2022-08-15] MEDS: HEPARIN SOD,PORK IN 0.45% NACL 25,000 UNIT in 0.45% NACL 1 250ML.BAG IV SCH (21:20)
[2022-08-15] MEDS: SODIUM CHLORIDE 0.9% 1,000 ML IV SCH (21:21)
[2022-08-16] MEDS ORDERED: HEPARIN SODIUM,PORCINE 2,500 UNIT in SODIUM CHLORIDE 0.9% 250 ML IRRIGATION PRN (07:00)
[2022-08-16] MEDS ORDERED: HEPARIN SODIUM,PORCINE 10,000 UNIT in SODIUM CHLORIDE 0.9% 1,000 ML IRRIGATION PRN (07:00)
[2022-08-16] MEDS ORDERED: ASPIRIN 81 MG PO SCH (09:00)
[2022-08-16 09:22] VITALS: BP 134/68; PULSE 81; RESP 18; TEMP 98.4
[2022-08-16] MEDS: ISOSORBIDE MONONITRATE ER 30 MG TAB.ER.24H PO SCH (09:22)
[2022-08-16] MEDS: METOPROLOL TARTRATE 25 MG TAB PO SCH (09:22)
[2022-08-16] MEDS: ATORVASTATIN 80 MG TAB PO SCH (09:23)
[2022-08-16 10:03] LABS: Mean Platelet Volume 8.4; Platelet Count 170 k/uL (150-450)
[2022-08-16 10:19] LABS: African American GFR (CKD) >90 (>60 ml/min/1.73 sqM); Anion Gap 6 mmol/L; Blood Urea Nitrogen 22 mg/dL (9-20); Calcium 8.7 mg/dL (8.4-10.2); Carbon Dioxide 27 mmol/L (22-30); Chloride 107 mmol/L (98-107); Glucose 145 mg/dL (74-99); Non-African American GFR(CKD) 80 (>60 ml/min/1.73 sqM); Potassium 4.1 mmol/L (3.5-5.1); Sodium 140 mmol/L (137-145)
--- NOTE | 2022-08-16 13:06 | P.PN ---
Subjective Progress Note Date: 08/16/22 History of present illness: This is a 61-year-old male but does not follow with a physician for number of years, no known medical history. Patient states that he was at work on Friday developed chest pain that was a quick sharp pain along with difficulty in breathing. He sat down and it went away and lasted an hour. He denies having any lightheadedness dizziness, no palpitations. Patient went home and relaxed for the rest the day and slept. He denies having any cough or upper respiratory infection. He states he had similar symptoms when he had Covid 19 in the past and yesterday he was having chills. His daughter took to test on him that today and those were negative. He started on DayQuil and aspirin and was feeling better. On Friday he continued to nap but was feeling better and had no symptoms of chest pain. His kids wanted him to be checked and he came into [facility] for evaluation. Patient is an active smoker since he was a teenager currently down to 4-5 cigarettes per day. He states he has a history of alcohol abuse and quit drinking 17 years ago. No history of diabetes that he is aware of. EKG sinus rhythm with no acute ST changes Chest x-ray: No acute cardiopulmonary disease CT angiogram of the chest revealed no evidence of pulmonary embolism. 3 mm left upper lobe pulmonary nodule consider follow-up in a year. WBC 12.4, hemoglobin 16.2, platelet count 199. INR 1. D-dimer 0.62. Electrolytes and renal function normal. Troponins 5.13, 6.03, 5.83. ProBNP 12 20. TSH 3.120. Rotavirus and strep negative. Echocardiogram 08/15/2022: EF 50%, mild increased left ventricular wall thickness, trace mitral regurgitation, no pericardial effusion. Home cardiac medications: None 08/16 Yesterday, patient underwent cardiac catheterization with Dr. Rustam Flores which revealed right coronary artery with 40-50% stenosis collaterals going to the LAD from the distal RCA. Left main is calcified showing mild nonobstructive disease. LAD reveals 70% stenosis very distally. Circumflex with 70% ostial stenosis. Diffuse three-vessel coronary artery disease as described. Plan for medical management. Patient denies having any chest pain or shortness of breath. He is anxious to go home today. He has been afebrile, heart rate in the 80s, blood pressure 134/68, pulse ox 94% on room air. Physical examination: Gen: This is a 61-year-old male. He is resting in bed and appears to be comfortable, no acute respiratory distress noted. VS: reviewed HEENT: Head is atraumatic, normocephalic. Pupils equal, round. Sclerae is anicteric. NECK: Supple. No JVD. . LUNGS: Clear to auscultation. No wheezes or rhonchi. No intercostal retractions. HEART: Regular rate and rhythm. No murmur. ABDOMEN: Soft No tenderness. EXTREMITIES: No pedal edema. No calf tenderness. NEUROLOGICAL: Patient is awake, alert and oriented x3. Assessment: Acute non-ST elevated myocardial infarction Tobacco use and dependence History of alcohol abuse History of Covid 19 Leukocytosis of unclear etiology Plan: Continue patient on on aspirin 81 mg daily, atorvastatin 80 mg daily, Imdur 30 mg daily, lisinopril 2.5 mg daily, Lopressor 25 mg twice daily Patient is cleared for discharge from cardiology and will follow up in the office with Dr Irene in one week. Nurse practitioner note has been reviewed, I agree with documented findings and plan of care. Patient was seen and examined. Objective - Vital Signs Vital signs: Vital Signs Temp 98.4 F 08/16/22 08:00 Pulse 81 08/16/22 08:00 Resp 18 08/16/22 08:00 BP 134/68 08/16/22 08:00 Pulse Ox 94 L 08/16/22 08:00 FiO2 Intake & Output 08/15/22 08/16/22 08/16/22 18:59 06:59 18:59 Intake Total 1058 236 Output Total 300 Balance 1058 -300 236 Weight 90.718 kg Intake: IV 400 Oral 658 236 Output: Urine 300 Other: # Voids 1 - Labs CBC & Chem 7: 08/16/22 09:36 08/16/22 09:36 Labs: Abnormal Lab Results - Last 24 Hours (Table) 08/15/22 08/16/22 Range/Units 05:26 09:36 BUN 22 H (9-20) mg/dL Glucose 145 H (74-99) mg/dL Cholesterol 234.00 H (0.00-200.00) mg/dL LDL Cholesterol, Calc 162.0 H (0.0-131.0) mg/dL
--- NOTE | 2022-08-16 14:37 | P.DS ---
Providers Date of admission: 08/14/22 22:09 Expected date of discharge: 08/16/22 Attending physician: Kerry Kan MD Consults: 08/14/22 22:09 Consult Physician Urgent Consulting Provider: Kathleen Dawn Consult Reason/Comments: nstemi Do you want consulting provider notified?: Yes Primary care physician: Stated None Hospital Course: Discharge Diagnosis: NSTEMI. Troponins were trended overnight and resulting at 5.130, 6.030, and 5.830. Cardiology consulted and took patient for cardiac catheterization 08/15/22. Cardiac catheterization revealed diffuse three-vessel coronary artery disease. Cardiology recommending to optimize medical therapy and consider percutaneous revascularization only if symptoms in spite of optimal medical treatment. Patient was started on aspirin 81 mg daily, nitrates isosorbide mononitrate 30 mg daily, beta blockers with metoprolol 25 mg twice daily, TRISTIN inhibitor with lisinopril 2.5 mg daily, and statin with atorvastatin 80 mg daily. Hyperlipidemia. Hypertension Type 2 diabetes mellitus, new diagnosis with hemoglobin A1c of 7.1%. Patient discharged home with glucometer and diabetes teaching. Patient started on metformin 500 mg twice daily. Nicotine dependence. Recommend smoking cessation. Hospital Course: Patient is a very pleasant 61-year-old male with a past medical history of nicotine dependence. He reports that on Friday he developed some chest pain/pressure to his left anterior chest wall at work. Patient reports since this time he has developed exertional shortness of breath along with extreme fatigue and was directed by his children to come to the hospital for evaluation on 08/14/22. Upon arrival to the emergency department, patient underwent full evaluation. Vital signs upon arrival stable with blood pressure 133/86, heart rate 94, respiratory rate 16, and SpO2 of 93% on room air with temperature 98.6F. EKG was completed showing normal sinus rhythm with a right bundle branch block at 84 bpm with T-wave inversion in inferior leads V3 and aVF upon personal review and interpretation. Chest x-ray completed and reviewed negative for acute cardiopulmonary process. CTA chest completed negative for pulmonary emboli revealing a 3 mm left upper lobe pulmonary nodule, recommend repeat imaging in 1 year to ensure stability. Labs completed and reviewed. CBC showing mild cytosis with WBC count of 12.4, d-dimer was elevated at 0.62 (as stated above CTA negative for PE). BMP unremarkable, liver profile showing slightly elevated AST of 87 and elevated CK-MB of 39.9. Troponin also elevated with initial troponin of 5.130. Patient was given aspirin and atorvastatin and started on heparin infusion. Patient was admitted under our services to cardiac stepdown unit with telemetry. Troponins were trended overnight and resulting at 5.130, 6.030, and 5.830. Cardiology consulted and took patient for cardiac catheterization 08/15/22. Cardiac catheterization revealed diffuse three-vessel coronary artery disease. Cardiology recommending to optimize medical therapy and consider percutaneous revascularization only if symptoms in spite of optimal medical treatment. Patient was started on aspirin 81 mg daily, nitrates isosorbide mononitrate 30 mg daily, beta blockers with metoprolol 25 mg twice daily, TRISTIN inhibitor with lisinopril 2.5 mg daily, and statin with atorvastatin 80 mg daily. Lipid profile was elevated with total cholesterol of 234 and LDL of 162.0. In addition hemoglobin A1c was also elevated. Patient diagnosed with diabetes mellitus type 2 and discharged home with glucometer and started on Glucophage 500 mg twice daily. Patient instructed that he will need to monitor his blood glucose levels closely and document these findings and a daily log/Journal to bring with him to his next doctor's appointment. Patient is free from any further episodes of chest pain/discomfort. Cardiology clearing patient from cardiac perspective for discharge recommending patient follow-up in their office in one week. Medically, patient is stable for discharge and to follow up outpatient with PCP and cardiology. Physical exam: Vital signs reviewed and stable. General: Nontoxic, no distress and appears stated age. Derm: Skin warm and dry, normal coloration for ethnicity. Head: Atraumatic, normocephalic and symmetric. Eyes: EOMs intact, no lid lag, and anicteric sclera Mouth: no lip lesions, mucus membranes moist Cardiovascular: regular rate and rhythm with normal S1S2, no murmur, positive posterior tibial pulses bilaterally, and cap refill < 2 seconds. Lungs: Respirations even, regular, and unlabored on room air. Lungs CTA bilaterally, no rhonchi, no rales, no wheezing, and no accessory muscle usage. Abdominal: soft, nontender to palpation, no guarding, no appreciable organomegaly Ext: ROM intact. No gross muscle atrophy, no edema, no contractures Neuro: Speech clear, face symmetrical and CN II-XII grossly intact with no noted focal neuro deficits Psych: Alert and oriented to person, place, time, and situation. Appropriate and pleasant affect. A total of 34 minutes of time were spent preparing this complex discharge summary. Pt was discharged on 08/16/22 at 2:31 PM. Patient was seen independently by Nurse Practitioner. This document was prepared using CS[employer] dictation software. Please allow for errors in marketing representative while rare they do occur. Patient Condition at Discharge: Stable Plan - Discharge Summary Discharge Rx Participant: No New Discharge Prescriptions: New Aspirin 81 mg PO DAILY tab Isosorbide Mononitrate ER [Imdur] 30 mg PO DAILY #90 tab Atorvastatin [Lipitor] 80 mg PO DAILY #90 tab Nitroglycerin Sl Tabs [Nitrostat] 0.4 mg SUBLINGUAL Q5M PRN #25 tab PRN Reason: Chest Pain Metoprolol Tartrate [Lopressor] 25 mg PO BID #180 tab lisinopriL [Zestril] 2.5 mg PO DAILY #90 tab metFORMIN HCL [Glucophage] 500 mg PO BID 30 Days #60 tab Discharge Medication List Aspirin 81 mg PO DAILY tab 08/16/22 [Rx] Atorvastatin [Lipitor] 80 mg PO DAILY #90 tab 08/16/22 [Rx] Isosorbide Mononitrate ER [Imdur] 30 mg PO DAILY #90 tab 08/16/22 [Rx] Metoprolol Tartrate [Lopressor] 25 mg PO BID #180 tab 08/16/22 [Rx] Nitroglycerin Sl Tabs [Nitrostat] 0.4 mg SUBLINGUAL Q5M PRN #25 tab 08/16/22 [Rx] lisinopriL [Zestril] 2.5 mg PO DAILY #90 tab 08/16/22 [Rx] metFORMIN HCL [Glucophage] 500 mg PO BID 30 Days #60 tab 08/16/22 [Rx] Follow up Appointment(s)/Referral(s): Alfred Jackson MD [REFERRING] - 1 Week Denys Flores MD [STAFF PHYSICIAN] - 08/23/22 2:30 pm Patient Instructions/Handouts: *Surgery [facility] - After Heart Catheterization - Atv Mechanic Instructions, Coronary Artery Disease (DC), Type 2 Diabetes in Adults: New Diagnosis (DC), Hypertension and Diabetes (DC) Activity/Diet/Wound Care/Special Instructions: Activity: As tolerated. Take breaks as needed. Diet: Heart healthy and carb consistent diet. Avoid salts, or foods with hidden salts such as canned or boxed foods and frozen dinners. Extra salt makes your heart work harder and traps the fluid in your body for longer. Special Instructions: Take all of your medications as directed and remember to keep all of your doctor's appointments and follow-up as needed. Remember, as we discussed it is important for you to also monitor your blood glucose levels daily and recommend documenting these results in a daily log/Journal to bring with you to your next doctor's appointment. Thank you for allowing us to participate in your care, it was truly a pleasure having you for our patient!!! Discharge/Stand Alone Forms: Area PCPs Discharge Disposition: HOME SELF-CARE
== END 2022-08-16 16:53 | disposition home or self-care (01) | DRG 282 ==
LOC: EC 17:54 → 3SCARD 22:09
PROVIDERS: ADMIT Internal Medicine; ATTEND Internal Medicine
PROC: B2111ZZ Fluoroscopy of Multiple Coronary Arteries using Low Osmolar Contrast (ICD-10-PCS; 2022-08-15)
PROC: 4A023N7 Measurement of Cardiac Sampling and Pressure, Left Heart, Percutaneous Approach (ICD-10-PCS; principal; 2022-08-15 12:20)
DX: I21.4 Non-ST elevation (NSTEMI) myocardial infarction (principal); F17.210 Nicotine dependence, cigarettes, uncomplicated; D72.829 Elevated white blood cell count, unspecified; I25.10 Atherosclerotic heart disease of native coronary artery without angina pectoris; I45.10 Unspecified right bundle-branch block; I34.0 Nonrheumatic mitral (valve) insufficiency; I10 Essential (primary) hypertension; E11.9 Type 2 diabetes mellitus without complications; E78.5 Hyperlipidemia, unspecified; Z71.6 Tobacco abuse counseling; Z86.16 Personal history of COVID-19; Z79.899 Other long term (current) drug therapy
CPT/HCPCS: 36415; 71045; 71275; 80048; 80053; 80061; 82553; 83036; 83690; 83735; 83880; 84443; 84484; 85025; 85049; 85379; 85610; 85730; 87635; 87651; 93005; 93306; 93458; 94760; 96361; 96365; 96366; 99291

== ENCOUNTER → 2023-01-18 | Outpatient (CLI) | payer BC ==
[2023-01-18 14:03] LABS: ALT 18 U/L (10-49); AST 18 U/L (14-35); Chol/HDL Ratio 3.37 Ratio; LDL Cholesterol,Calculated 85.1 mg/dL (0.0-131.0); VLDL Calculation 13.34 mg/dL (5.00-40.00)
== END | disposition home or self-care (01) ==
LOC: LABWHC1 08:39
PROVIDERS: ATTEND Internal Medicine Cardiovascular Disease
DX: E78.2 Mixed hyperlipidemia (principal)
CPT/HCPCS: 36415; 80061; 84450; 84460

== ENCOUNTER → 2023-07-26 | Outpatient (CLI) | payer BC ==
[2023-07-26 14:18] LABS: Basophils # (A) 0.06 X 10*3/uL (0.00-0.10); Basophils % (A) 0.8 %; Eosinophils # (A) 0.12 X 10*3/uL (0.04-0.35); Eosinophils % (A) 1.6 %; HCT 44.2 % (39.6-50.0); HGB 14.8 g/dL (13.0-17.0); Lymphocytes # (A) 1.86 X 10*3/uL (0.90-5.00); Lymphocytes % (A) 24.4 %; MCH 30.6 pg (27.0-32.0); MCHC 33.5 g/dL (32.0-37.0); MCV 91.5 FL (80.0-97.0); Mean Platelet Volume 10.8 FL (9.5-12.2); Monocytes # (A) 0.75 X 10*3/uL (0.20-1.00); Monocytes % (A) 9.9 %; NRBC Per 100 WBC 0 X 10*3/uL (0.00-0.01); Neutrophils # (A) 4.79 X 10*3/uL (1.80-7.70); Neutrophils % (A) 62.9 %; Platelet Count 177 X 10*3/uL (140-440); RBC 4.83 X 10*6/uL (4.40-5.60); RDW 13.1 % (11.5-14.5); WBC 7.61 X 10*3/uL (4.50-10.00)
[2023-07-26 16:52] LABS: ALT 31 U/L (10-49); AST 23 U/L (14-35); Albumin 4.4 g/dL (3.8-4.9); Albumin/Globulin Ratio 1.69 Ratio (1.60-3.17); Alkaline Phosphatase 87 U/L (41-126); Blood Urea Nitrogen 13.2 mg/dL (9.0-27.0); Calcium 9.7 mg/dL (8.7-10.3); Carbon Dioxide 24.6 mmol/L (21.6-31.8); Chloride 106 mmol/L (96-109); Chol/HDL Ratio 2.54 Ratio; Globulin 2.6 g/dL (1.6-3.3); Glucose 184 mg/dL (70-110); LDL Cholesterol,Calculated 57.7 mg/dL (0.0-131.0); Potassium 4.7 mmol/L (3.5-5.5); Sodium 141 mmol/L (135-145); Total Bilirubin 0.7 mg/dL (0.3-1.2); VLDL Calculation 10.18 mg/dL (5.00-40.00)
== END | disposition home or self-care (01) ==
LOC: LABWHC1 08:47
PROVIDERS: ATTEND Internal Medicine
DX: Z12.5 Encounter for screening for malignant neoplasm of prostate (principal); Z11.59 Encounter for screening for other viral diseases; F17.200 Nicotine dependence, unspecified, uncomplicated; I25.10 Atherosclerotic heart disease of native coronary artery without angina pectoris
CPT/HCPCS: 86803; 80061; 80053; 84443; 85025; 36415; G0103; 83036